=== PATIENT | female | born 1990 | race African-American/Black ===

== ENCOUNTER 2023-02-21 20:15 | Inpatient (IN) | payer SELFPAY ==
[~2023-02-21] VITALS: Ht 165.1 cm; Wt 89.8 kg
[2023-02-21 20:50] VITALS: BP 138/78; PULSE 105; RESP 20; TEMP 98.6
[2023-02-21] MEDS ORDERED: MORPHINE SULFATE 10 MG/ML VIAL IVP PRN (20:55)
[2023-02-21] MEDS ORDERED: CARBOPROST 250 MCG/ML AMP IM PRN (20:55)
[2023-02-21] MEDS ORDERED: ONDANSETRON 4 MG/2 ML VIAL IVP PRN (20:55)
[2023-02-21] MEDS ORDERED: METHYLERGONOVINE 0.2 MG/ML AMP IM PRN (20:55)
[2023-02-21] MEDS ORDERED: AMPICILLIN 2,000 MG in NACL 0.9% MINI-BAG PLUS 100 ML IV SCH (21:15)
[2023-02-21 21:34] VITALS: BP 132/69; PULSE 74; RESP 18
[2023-02-21] MEDS: LACTATED RINGERS 1,000 ML IV SCH (21:35)
[2023-02-21 21:51] LABS: BASOPHILS % (AUTO) 0.1 % (0.0-2.0); HEMATOCRIT 31.3 % (36-48); HEMOGLOBIN 10.1 g/dL (12.0-16.0); LYMPHOCYTES # (AUTO) 0.9 K/uL (2.5-16.5); LYMPHOCYTES % (AUTO) 6.5 % (20.5-51.1); MEAN CORPUSCULAR HEMOGLOBIN 25 pg (27-31); MEAN CORPUSCULAR HGB CONC 32 g/dL (33-37); MEAN CORPUSCULAR VOLUME 75.9 fL (80-94); MONOCYTES # (AUTO) 0.9 K/uL (0.8-1.0); MONOCYTES % (AUTO) 6.3 % (1.7-9.3); NEUTROPHILS # (AUTO) 11.8 K/uL (1.8-7.7); NEUTROPHILS % (AUTO) 87.1 % (42.2-75.2); PLATELET COUNT (AUTO) 324 K/uL (140-450); RED BLOOD CELL COUNT(AUTO) 4.13 MIL/uL (4.20-5.40); WHITE BLOOD COUNT (AUTO) 13.5 K/uL (4.8-10.8)
[2023-02-21] MEDS ORDERED: AMPICILLIN 1,000 MG VIAL ONE (21:57)
[2023-02-21 22:10] LABS: APPEARANCE,URINE CLEAR (CLEAR); BILIRUBIN,URINE NEGATIVE (NEGATIVE); BLOOD, URINE 3+ (NEGATIVE); COLOR,URINE YELLOW (YELLOW); LEUKOCYTE ESTERASE ,URINE NEGATIVE (NEGATIVE); NITRITE, URINE NEGATIVE (NEGATIVE); PROTEIN,URINE TRACE (NEGATIVE); UGLUCOSE NEGATIVE (NEGATIVE); UROBILINOGEN,URINE 0.2 EU/dL (0.2 - 1)
[2023-02-21 22:13] LABS: INR 0.94 (0.8-1.2); PARTIAL THROMBOPLASTIN TIME 25.1 secs (22-35.6); PROTHROMBIN TIME 9.9 secs (10.8-13.4)
[2023-02-21 22:15] LABS: ALBUMIN 2.7 g/dL (3.4-5.0); ANION GAP 16.9 (8-16); CALCIUM 9.1 mg/dL (8.5-10.1); CARBON DIOXIDE 19.7 mmol/L (21-32); CREATININE 0.6 mg/dL (0.6-1.3); POTASSIUM 3.6 mmol/L (3.5-5.1); TOTAL BILIRUBIN 0.5 mg/dL (0.0-1.0); TOTAL PROTEIN, SERUM 7.2 g/dL (6.4-8.2)
[2023-02-21 22:18] LABS: BACTERIA,URINE FEW /HPF (None Seen); MUCUS,URINE 1+ /LPF (None Seen); RBC,URINE 50-80 /HPF (0-5); TRICHOMONAS,URINE None Seen /HPF (None Seen); WBC,URINE 0-5 /HPF (0-5); YEAST,URINE None Seen /HPF (None Seen)
[2023-02-21] MEDS ORDERED: ROPIVACAINE 0.2%/NS PREMIX 200 ML EPI ONE (22:38)
[2023-02-21] MEDS ORDERED: LIDOCAINE MPF 2% 100 MG/5 ML VIAL INJ ONE (23:40)
[2023-02-22] MEDS ORDERED: AMPICILLIN 1,000 MG in NACL 0.9% MINI-BAG PLUS 50 ML IV SCH ×2
[2023-02-22] MEDS ORDERED: PREN-543 PO (00:28)
[2023-02-22] MEDS ORDERED: FERR325E14 PO (00:28)
[2023-02-22] MEDS ORDERED: OXYTOCIN 20 UNITS/LR PREMIX 1,000 ML IV ONE (01:36)
[2023-02-22] MEDS: OXYTOCIN 20 UNITS in LACTATED RINGERS 1,000 ML IV SCH ×2 (01:42→10:02)
[2023-02-22] MEDS ORDERED: AMPICILLIN 1,000 MG VIAL ONE ×2 (01:54→05:39)
[2023-02-22] MEDS: LACTATED RINGERS 1,000 ML IV SCH (05:35)
[2023-02-22] MEDS ORDERED: METHYLERGONOVINE 0.2 MG/ML AMP IM PRN (12:15)
[2023-02-22] MEDS ORDERED: OXYTOCIN 10 UNITS/ML VIAL IM PRN (12:15)
[2023-02-22] MEDS ORDERED: METHYLERGONOVINE 0.2 MG TAB PO PRN (12:15)
[2023-02-22] MEDS ORDERED: IBUPROFEN 800 MG TAB PO PRN (12:15)
[2023-02-22] MEDS ORDERED: BENZOCAINE/MENTHOL 20%-0.5% 60 GM CAN TP PRN (12:15)
[2023-02-22] MEDS ORDERED: IBUPROFEN 600 MG TAB PO PRN (12:40)
[2023-02-22] MEDS ORDERED: oxyCODONE/APAP 5/325 MG 1 TAB TAB PO PRN (12:40)
[2023-02-22] MEDS ORDERED: DOCUSATE SODIUM 100 MG GELCAP PO PRN (12:45)
[2023-02-23 09:18] LABS: HEMATOCRIT 25.5 % (36-48); HEMOGLOBIN 8.3 g/dL (12.0-16.0)
[2023-02-24] MEDS ORDERED: IBUPROFEN 600 MG TAB PO PRN (16:00)
== END 2023-02-24 11:55 | disposition home or self-care (01) | DRG 807 ==
LOC: MLD 20:15 → MFCC 02-22 12:34
PROVIDERS: ADMIT Obstetrics & Gynecology; ATTEND Obstetrics & Gynecology
PROC: 10E0XZZ Delivery of Products of Conception, External Approach (ICD-10-PCS; principal; 2023-02-22)
PROC: 3E0R3BZ Introduction of Anesthetic Agent into Spinal Canal, Percutaneous Approach (ICD-10-PCS; 2023-02-22)
PROC: 00HU33Z Insertion of Infusion Device into Spinal Canal, Percutaneous Approach (ICD-10-PCS; 2023-02-22)
DX: O48.0 Post-term pregnancy (principal); Z37.0 Single live birth; O99.824 Streptococcus B carrier state complicating childbirth; Z3A.40 40 weeks gestation of pregnancy; Z20.822 Contact with and (suspected) exposure to COVID-19
CPT/HCPCS: 36415; 51702; 59409; 80053; 81001; 85018; 85025; 85610; 85730; 86592; 86886; 86900; 86901; 87340; 90715; J0290; J2001; J2270; J2405; J2590; J2795; J7120

== ENCOUNTER 2023-02-27 22:14 | Emergency (ER) | payer SELFPAY ==
[~2023-02-27] VITALS: Ht 162.6 cm; Wt 85.8 kg
[~2023-02-27 22:14] MED LIST: FERR325E14 PO; PREN-543 PO
[2023-02-27 23:10] VITALS: BP 136/87; PULSE 93; RESP 20; TEMP 99.2; O2SAT 98
[2023-02-28] MEDS ORDERED: HYDROcodone/APAP 5/325 MG 1 TAB TAB PO ONE (00:50)
[2023-02-28] MEDS ORDERED: LIDOCAINE 2% 100 MG/5 ML UJET TP ONE (00:50)
[2023-02-28] MEDS ORDERED: KETOROLAC 30 MG/ML VIAL IVP ONE (01:35)
[2023-02-28] MEDS ORDERED: NACL 0.9% 1,000 ML IV ONE (01:35)
[2023-02-28 01:54] LABS: BASOPHILS % (AUTO) 0.3 % (0.0-2.0); EOSINOPHILS # (AUTO) 0.1 K/uL (0-0.4); EOSINOPHILS % (AUTO) 0.8 % (0.0-4.0); HEMATOCRIT 27.6 % (36-48); LYMPHOCYTES # (AUTO) 1.8 K/uL (2.5-16.5); LYMPHOCYTES % (AUTO) 12.8 % (20.5-51.1); MEAN CORPUSCULAR HEMOGLOBIN 25 pg (27-31); MEAN CORPUSCULAR HGB CONC 33 g/dL (33-37); MEAN CORPUSCULAR VOLUME 76.8 fL (80-94); MONOCYTES # (AUTO) 1.6 K/uL (0.8-1.0); MONOCYTES % (AUTO) 11.1 % (1.7-9.3); NEUTROPHILS # (AUTO) 10.7 K/uL (1.8-7.7); PLATELET COUNT (AUTO) 290 K/uL (140-450); RED BLOOD CELL COUNT(AUTO) 3.59 MIL/uL (4.20-5.40); RED CELL DISTRIBUTION WIDTH 16.7 % (11.6-13.7); WHITE BLOOD COUNT (AUTO) 14.2 K/uL (4.8-10.8)
[2023-02-28 02:03] LABS: ANION GAP 13.9 (8-16); CALCIUM 8.8 mg/dL (8.5-10.1); CARBON DIOXIDE 24.8 mmol/L (21-32); CREATININE 0.6 mg/dL (0.6-1.3); POTASSIUM 3.7 mmol/L (3.5-5.1)
[2023-02-28 02:11] LABS: LACTIC ACID 0.8 mmol/L (0.4-2.0)
[2023-02-28 02:52] LABS: APPEARANCE,URINE CLOUDY (CLEAR); BILIRUBIN,URINE NEGATIVE (NEGATIVE); BLOOD, URINE 3+ (NEGATIVE); COLOR,URINE YELLOW (YELLOW); LEUKOCYTE ESTERASE ,URINE 3+ (NEGATIVE); NITRITE, URINE NEGATIVE (NEGATIVE); PH,URINE 6.5 (5.0-9.0); PROTEIN,URINE NEGATIVE (NEGATIVE); UGLUCOSE NEGATIVE (NEGATIVE); UROBILINOGEN,URINE 0.2 EU/dL (0.2 - 1)
[2023-02-28 03:10] LABS: FLU A ANTIGEN POSITIVE (NEGATIVE); FLU B ANTIGEN NEGATIVE (NEGATIVE)
[2023-02-28 03:16] LABS: BACTERIA,URINE >30 (MANY) /HPF (None Seen); WBC,URINE >25 (MANY) /HPF (0-5)
[2023-02-28 03:17] LABS: MUCUS,URINE 2+ /LPF (None Seen); SQUAMOUS EPITHELIAL CELL,UR 0-3 (FEW) /LPF (0-3 (FEW))
[2023-02-28] MEDS ORDERED: NAPR-54 PO (05:24)
[2023-02-28] MEDS ORDERED: CEPH-588 PO (05:24)
[2023-02-28] MEDS ORDERED: TAM75 PO (05:24)
[2023-02-28] MEDS ORDERED: ACET-10509 PO (05:24)
[2023-02-28 06:07] VITALS: BP 111/66; PULSE 64; RESP 20; O2SAT 99
== END 2023-02-28 06:07 | disposition home or self-care (01) ==
LOC: MED 22:14
DX: N39.0 Urinary tract infection, site not specified (principal); Z20.822 Contact with and (suspected) exposure to COVID-19; J10.1 Influenza due to other identified influenza virus with other respiratory manifestations; Z48.00 Encounter for change or removal of nonsurgical wound dressing; Z79.899 Other long term (current) drug therapy
CPT/HCPCS: 36415; 76856; 80048; 81001; 83605; 84702; 85025; 87040; 87086; 87426; 87804; 96374; 99285; J1885; J7030